=== PATIENT | female | born 1990 | race Two or more races ===

== ENCOUNTER 2017-08-22 21:41 | Observation (INO) | payer MEDICAID ==
[~2017-08-22] VITALS: Ht 162.6 cm; Wt 70.3 kg
[2017-08-22] MEDS ORDERED: SODIUM CHLORIDE 0.9% 500 ML IV ONE (22:30)
[2017-08-22 22:32] LABS: Basophils # (auto) 0.1 uL; Basophils % (auto) 0.3 % (0.0-2.0); Eosinophils # (auto) 0.1 uL; Eosinophils % (auto) 0.5 % (0.0-7.0); Hematocrit 45.3 % (36.0-46.0); Hemoglobin 15.5 g/dL (12.2-16.2); Lymphocytes # (auto) 2.5 uL; Lymphocytes % (auto) 14.7 % (10.0-50.0); Mean Corpuscular Hemoglobin 29.5 pg (28.0-32.0); Mean Corpuscular Hgb Conc. 34.1 g/dL (32.0-36.0); Mean Corpuscular Volume 86.4 fL (80.0-100.0); Monocytes # (auto) 1.3 uL; Monocytes % (auto) 7.6 % (0.0-12.0); Neutrophils # (auto) 13.3 uL; Neutrophils % (auto) 76.9 % (37.0-80.0); Platelet Count (auto) 309 10^3/uL (140-450); Red Blood Cells 5.24 10^6/uL (4.0-5.20); White Blood Cell 17.3 10^3/uL (4.4-10.8)
[2017-08-22 22:45] LABS: Urine Bacteria MANY /hpf (None Seen); Urine Blood 1+ /uL (Negative); Urine Mucus FEW (None Seen); Urine Specific Gravity 1.027 (1.001-1.035); Urine WBC 89 /hpf (0 - 5)
[2017-08-22] MEDS ORDERED: SODIUM CHLORIDE 0.9% 1,000 ML IV ONE (22:45)
[2017-08-22 22:50] LABS: Albumin 4.6 g/dL (3.4-5.0); Anion Gap 13 (5-15); BUN/Creatinine Ratio 14.8; Blood Alcohol < 3.0 mg/dL (0-5); Blood Urea Nitrogen 13 mg/dL (7-18); Calcium 9.6 mg/dL (8.5-10.1); Carbon Dioxide 21 mmol/L (21-32); Chloride 104 mmol/L (98-107); GFR African American 101 mL/min; GFR Non-African American 83 mL/min; Glucose 112 mg/dL (74-106); Potassium 3.1 mmol/L (3.5-5.1); Sodium 138 mmol/L (136-145)
[2017-08-22 22:57] LABS: Amphetamine Screen, Urine POSITIVE (NEGATIVE); Barbiturate Scree,Urine NEGATIVE (NEGATIVE); Benzodiazephine Screen, Urine NEGATIVE (NEGATIVE); Cannabinoid Screen, Urine POSITIVE (NEGATIVE); Cocaine Screen, Urine NEGATIVE (NEGATIVE); Opiate Scree,Urine NEGATIVE (NEGATIVE); Phencyclidine Screen, Urine NEGATIVE (NEGATIVE)
[2017-08-22 23:01] LABS: Alanine Aminotransferase 108 U/L (13-56); Alkaline Phosphatase 208 U/L (45-117); Aspartate Aminotransferase 62 U/L (15-37); Bilirubin, Total 0.9 mg/dL (0.2-1.0); Total Protein 9.1 g/dL (6.4-8.2)
[2017-08-22] MEDS ORDERED: cefTRIAXone 1GM/10ml IVPUSH 10 ML IV ONE (23:15)
[2017-08-23 00:32] VITALS: BP 106/76
[2017-08-23] MEDS ORDERED: POTASSIUM CHL 20 Meq TABLET PO ONE (00:45)
== END 2017-08-23 00:38 | disposition home or self-care (01) | DRG 776 ==
LOC: ER 21:45 → OVERFLOW 22:22 → ER 08-23 00:37
PROVIDERS: ADMIT Emergency Medicine; ATTEND Emergency Medicine
DX: F15.90 Other stimulant use, unspecified, uncomplicated (principal); F41.9 Anxiety disorder, unspecified; F12.90 Cannabis use, unspecified, uncomplicated; F17.210 Nicotine dependence, cigarettes, uncomplicated
CPT/HCPCS: 36415; 80053; 80307; 80320; 81001; 85025; 96361; 96374; 99285; G0378